=== PATIENT | male | born 1970 | race Caucasian/White ===

== ENCOUNTER 2022-12-17 14:39 | Emergency (ER) | payer OTHER, BC ==
[~2022-12-17] VITALS: Ht 182.9 cm; Wt 76.5 kg
[2022-12-17] MEDS ORDERED: HYDROCODON-ACE1 EA11 PO (15:45)
[2022-12-17 16:21] VITALS: BP 149/72
== END 2022-12-17 16:21 | disposition home or self-care (01) ==
LOC: ED 14:39
DX: S52.572A Other intraarticular fracture of lower end of left radius, initial encounter for closed fracture (principal); W18.39XA Other fall on same level, initial encounter
CPT/HCPCS: 29125; 73110; 99283-25; A9270